=== PATIENT | male | born 1950 | race Caucasian/White ===

== ENCOUNTER → 2017-07-27 | Outpatient (CLI) | payer MEDICARE, OTHER ==
--- NOTE | 2017-07-27 12:50 | Diagnostic Imaging Report ---
PROCEDURE: Lung cancer screening CT chest without contrast. TECHNIQUE: Multiple contiguous axial images were obtained through the chest without the use of intravenous contrast. This is performed with a low-dose protocol. INDICATION: Currently asymptomatic patient with 100 pack years history of smoking Comparison: None Findings: There is a 5 mm nodule in the left upper lobe image 21 of series 7 without associated calcification. This is indeterminate. There are other calcified nodules seen in the left perihilar region compatible with a prior granulomatous process. There is minimal scarring or atelectasis seen in the lung bases. Mild upper lobe predominant emphysema changes are noted. The heart size is normal. No pericardial or pleural effusion. The thoracic aorta is normal in caliber. No mediastinal mass or significantly enlarged lymph node is seen. No pleural or pericardial effusion. There is a diffuse hepatic steatosis suggested. The osseous structures appear grossly unremarkable. IMPRESSION: Indeterminate 5 mm noncalcified left upper lobe pulmonary nodule. A followup study in 6 months is recommended to ensure stability. Lung Rads Category 3. Likely benign. Recommendations: 6 months followup low dose CT. Dictated by: Dictated on workstation # [id number]
== END ==
LOC: RAD 10:42
PROVIDERS: ATTEND Internal Medicine
DX: Z12.2 Encounter for screening for malignant neoplasm of respiratory organs (principal); R91.1 Solitary pulmonary nodule

== ENCOUNTER → 2018-02-03 | Outpatient (CLI) | payer MEDICARE, OTHER ==
--- NOTE | 2018-02-01 17:18 | HISTORY AND PHYSICAL ---
DATE OF SERVICE: COLONOSCOPY HISTORY AND PHYSICAL HISTORY OF PRESENT ILLNESS: The patient is a 67-year-old white male seen in the office on for evaluation of diabetes and hypertension. He also was diagnosed with a solitary pulmonary nodule measuring 0.5 cm in size in the left upper lobe at a previous lung cancer screening due to past tobaccoism. He is scheduled for a 6-month follow up. CT at the end of this week. He reports that all in all he has had chronic stable nonradicular lower back pain, feels that he has been doing fairly well otherwise. He has history of diabetes and hypertension. There is a family history for colon cancer, index case being his mother diagnosed in her early 50s and she recently essentially with end-stage Alzheimer disease of complications from urinary tract infection with sepsis. She was in her mid 80s. He has noted no blood in the stool and has been 9 years since his last colonoscopy. He also denies bowel habit change or abdominal pain. PAST MEDICAL HISTORY: Other medical problems include type 2 diabetes mellitus and hypertension. PHYSICAL EXAMINATION: GENERAL: Reveals a pleasant overweight white male, in no acute distress. CHEST: Clear. CARDIOVASCULAR: Revealed a regular rate and rhythm with a soft I to II/ systolic ejection murmur heard best at the second right intercostal space without evidence for pulsus, parvus or tardus. VITAL SIGNS: Blood pressure 120/60. NECK: Revealed no JVD, adenopathy or bruits. ABDOMEN: Soft, supple without mass, organomegaly or tenderness. EXTREMITIES: Reveal no cyanosis, clubbing or edema. Weight was up 3.8 pounds over the past 6 months. Blood tests were reviewed. A1c increased from 6.8 to 7.7%. PSA remains within normal range slightly lower at 1.84 compared to last year. GFR stable, slightly decreased at 42 with a creatinine of 1.7 and a BUN of 21. Fasting morning sugar was 119. ASSESSMENT AND PLAN: 1. The patient was set up for screening colonoscopy, deemed to be of higher than average risk secondary to a family history of colon cancer. The index case being his mother diagnosed in her mid 50s. He reports significant problems with his last colonoscopy waking up having abdominal pain during the procedure, so will perform this under anesthesia utilizing Diprivan. Prep instructions were discussed with the patient and questions were answered. 2. Type 2 diabetes mellitus, controlled not as good due to advancing age and weight gain. We will be checking into medication coverage for SGLT-2 inhibitor therapy, but will not plan on instituting this until after his colonoscopy. For now, he will continue metformin, basal insulin therapy and glimepiride. 3. Hypertension, reasonable control. 4. Stage 3 chronic renal disease secondary to combination of hypertension and diabetes, stable. Job ID: [id number] DocumentID: [id number] Dictated Date: 02/01/2018 16:34:10 Supervisor Sanding Date: 02/01/2018 17:17:56 Dictated By: PATRICK CRUZ MD MTDD
[~2018-02-03] MED LIST: ACET-2267 PO; ASPI-999 PO; ATOR40TA70 PO; DIAZ5TAB3 PO; DOCU100C37 PO; FAMO20TA3 PO; FENO145T2 PO; GABA-486 PO; GLIM2TAB PO; HYDR-3820 PO; INSU100V6 SQ; L-THYROXINE PO; LISI-556 PO; METF10002 PO; METH78GE TP; METO10TA3 PO; MULTIVITAMINE PO; NFNEB10T PO; NIAC10002 PO; OMG1KC PO; VENL225T PO; [UNRECOGNIZED DRUG - CODE] OP; [UNRECOGNIZED DRUG - CODE] PO; [UNRECOGNIZED DRUG - OTHER] PO; [UNRECOGNIZED DRUG - OTHER] TOP; [UNRECOGNIZED DRUG - OTHER] TOP
--- NOTE | 2018-02-03 14:40 | Diagnostic Imaging Report ---
PROCEDURE: CT chest without contrast. TECHNIQUE: Multiple contiguous axial images were obtained through the chest without the use of intravenous contrast. INDICATION: Pulmonary nodule. Patient presents for six-month followup. COMPARISON: Comparison is made with prior study from 07/27/2017. FINDINGS: Low dose noncontrast acquisition was performed. Overall image quality is limited. No axillary, hilar or mediastinal lymphadenopathy is seen. There are coronary arterial calcifications present. No pericardial or pleural fluid is seen. Parenchymal evaluation again shows a small nodule in left upper lobe, image 74 series 4, stable at 4-5 mm when compared with exam six months earlier. No new parenchymal nodule is seen. IMPRESSION: Stable 4-5 mm left upper lobe nodule when compared with examination six months earlier. Additional six-month followup CT is recommended to show continued stability. Dictated by: Dictated on workstation # [id number]
== END ==
LOC: RAD 12:49
PROVIDERS: ATTEND Internal Medicine
DX: R91.1 Solitary pulmonary nodule (principal)
CPT/HCPCS: 71250

== ENCOUNTER 2018-02-24 05:37 | Outpatient (CLI) | payer MEDICARE, OTHER ==
[~2018-02-24] VITALS: Ht 175.3 cm; Wt 90.7 kg
== END 2018-02-24 15:15 ==
LOC: PREOP 05:37
PROVIDERS: ATTEND Internal Medicine
DX: Z01.818 Encounter for other preprocedural examination (principal); Z12.11 Encounter for screening for malignant neoplasm of colon; Z80.0 Family history of malignant neoplasm of digestive organs

== ENCOUNTER 2018-03-03 07:06 | Day surgery (SDC) | payer MEDICARE, OTHER ==
[~2018-03-03] VITALS: Ht 175.3 cm; Wt 90.7 kg
[2018-03-03] MEDS ORDERED: LACTATED RINGERS 1,000 ML IV ONE (07:15)
[2018-03-03] MEDS ORDERED: LACTATED RINGERS 1,000 ML IV STA (07:34)
[2018-03-03] MEDS ORDERED: proPOfol 200 MG/20 ML (DIPRIVAN) VIAL IV ONE (07:40)
[2018-03-03] MEDS ORDERED: MIDAZOLAM 2 MG/2 ML (VERSED) VIAL ONE (07:40)
[2018-03-03] MEDS ORDERED: LIDOCAINE JELLY 2% (XYLOCAINE) 5 ML TUBE MM PRN (07:45)
[2018-03-03] MEDS ORDERED: FAMO20TA3 PO (08:00)
[2018-03-03] MEDS ORDERED: ACET-2267 PO (08:00)
[2018-03-03] MEDS ORDERED: NIAC10002 PO (08:00)
[2018-03-03] MEDS ORDERED: [UNRECOGNIZED DRUG - OTHER] PO (08:00)
[2018-03-03] MEDS ORDERED: [UNRECOGNIZED DRUG - CODE] OP (08:00)
[2018-03-03] MEDS ORDERED: LISI-556 PO (08:00)
[2018-03-03] MEDS ORDERED: DIAZ5TAB3 PO (08:00)
[2018-03-03] MEDS ORDERED: METF10002 PO (08:00)
[2018-03-03] MEDS ORDERED: ATOR40TA70 PO (08:00)
[2018-03-03] MEDS ORDERED: GABA-486 PO (08:00)
[2018-03-03] MEDS ORDERED: OMG1KC PO (08:00)
[2018-03-03] MEDS ORDERED: INSU100V6 SQ (08:00)
[2018-03-03] MEDS ORDERED: DOCU100C37 PO (08:00)
[2018-03-03] MEDS ORDERED: GLIM2TAB PO (08:00)
[2018-03-03] MEDS ORDERED: VENL225T PO (08:00)
[2018-03-03] MEDS ORDERED: L-THYROXINE PO (08:00)
[2018-03-03] MEDS ORDERED: MULTIVITAMINE PO (08:00)
[2018-03-03] MEDS ORDERED: METO10TA3 PO (08:00)
[2018-03-03] MEDS ORDERED: HYDR-3820 PO (08:00)
[2018-03-03] MEDS ORDERED: FENO145T2 PO (08:00)
[2018-03-03] MEDS ORDERED: NFNEB10T PO (08:00)
[2018-03-03] MEDS ORDERED: ASPI-999 PO (08:00)
--- NOTE | 2018-03-03 08:08 | Pre-Op Note & Conscious Sedat ---
Pre-Operative Progress Note H&P Reviewed The H&P was reviewed, patient examined and no changes noted. Date H&P Reviewed: Mar 03, 2018 Time H&P Reviewed: 07:50 Conscious Sedation Pre-Proced ASA Class: 2 Airway Mallampati Classification: ([place] appropriate class) I. II. III, IV Lungs Heart ASA score ASA 1: a normal healthy patient ASA 2: a patient with a mild systemic disease (mid diabetes, controlled hypertension, obesity ASA 3: a patient with a severe systemic disease that limits activity (angina , COPD, prior Myocardial infarction) ASA 4: a patient with an incapacitating disease that is a constant threat to life (CHF, renal failure) ASA 5: a moribund patient not expected to survive 24 hrs. (ruptured aneurysm) ASA 6: a declared brain patient whose organs are being harvested. For emergent operations, add the letter E after the classification Grade 2 Sedation Plan: Analgesia, Amnesia, Plan communicated to team members, Discussed options with patient/fam, Discussed risks with patient/fam Note The patient is an appropriate candidate to undergo the planned procedure, sedation, and anesthesia. The patient immediately re-assessed prior to indication. PATRICK CRUZ MD Mar 03, 2018 08:08
[2018-03-03] MEDS ORDERED: LIDOCAINE JELLY 2% (XYLOCAINE) 5 ML TUBE ONE (08:10)
[2018-03-03] MEDS ORDERED: METH78GE TP (08:22)
[2018-03-03] MEDS ORDERED: [UNRECOGNIZED DRUG - OTHER] TOP (08:22)
[2018-03-03] MEDS ORDERED: [UNRECOGNIZED DRUG - CODE] PO (08:22)
[2018-03-03] MEDS ORDERED: [UNRECOGNIZED DRUG - OTHER] TOP (08:22)
[2018-03-03 08:39] VITALS: BP 146/79
[2018-03-03 08:55] VITALS: BP 128/70
--- NOTE | 2018-03-03 09:17 | Anesthesia-General Post-Op ---
MAC Patient Condition Mental Status/LOC: Same as Preop Cardiovascular: Satisfactory Nausea/Vomiting: Absent Respiratory: Satisfactory Pain: Controlled Complications: Absent Post Op Complications Complications None Follow Up Care/Instructions Patient Instructions None needed. Anesthesiology Discharge Order Discharge Order Patient is doing well, no complaints, stable vital signs, no apparent adverse anesthesia problems. CHI VILLEDA DO Mar 03, 2018 09:17
[2018-03-03 09:35] VITALS: BP 130/72
[2018-03-03 09:40] VITALS: BP 130/72
--- NOTE | 2018-03-03 15:39 | OPERATIVE REPORT ---
DATE OF SERVICE: COLONOSCOPY SUMMARY INDICATION FOR THE PROCEDURE: Screening colonoscopy, family history for colon cancer. The patient was placed in left lateral decubitus position. Prior to undergoing colonoscopy, digital rectal evaluation performed. No abnormalities, no additional inspection of the anal canal or distal rectal vault. On digital inspection, the prostate was compatible with mild BPH. No nodularity or tenderness is noted. The colonoscope was then inserted in the rectum under direct visualization advanced to the cecum. The cecum was identified by identification of the ileocecal valve and cecal strap. Photographic documentation was obtained. Careful inspection was made as colonoscope was withdrawn. FINDINGS: There was no evidence for internal or external hemorrhoids and the rectum was unremarkable. One diminutive small sigmoid diverticulum was present without evidence for diverticulitis. No other sigmoid colonic abnormalities were appreciated. The descending colon and splenic flexure were unremarkable. Present in the transverse colon was a sessile adenomatous appearing 3 x 4 mm lobulated polyp. It was photographed and biopsied and submitted for histopathology. There was a several drop blood loss. The remainder of the transverse colon, hepatic flexure, ascending colon and cecum were unremarkable. ASSESSMENT: 1. One diminutive polyp was biopsied and ablated using hot forceps noted in the mid transverse colon with no other evidence for neoplasia on today's evaluation. As long as there are no surprise on histopathology report considering family history, we will advocate consideration for repeat surveillance colonoscopy in 5 years. 2. One small sigmoid diverticulum was present. 3. Digital rectal evaluation of the prostate was compatible with mild BPH. Job ID: [id number] DocumentID: [id number] Dictated Date: 03/03/2018 09:21:03 Mobile Sales Technician Date: 03/03/2018 15:38:54 Dictated By: PATRICK CRUZ MD [facility]
== END 2018-03-03 09:40 | disposition home or self-care (01) ==
LOC: ENDO 07:06
PROVIDERS: ATTEND Internal Medicine
DX: Z12.11 Encounter for screening for malignant neoplasm of colon (principal); Z80.0 Family history of malignant neoplasm of digestive organs; D12.3 Benign neoplasm of transverse colon; K57.30 Diverticulosis of large intestine without perforation or abscess without bleeding; I12.9 Hypertensive chronic kidney disease with stage 1 through stage 4 chronic kidney disease, or unspecified chronic kidney disease; E78.5 Hyperlipidemia, unspecified; Z87.891 Personal history of nicotine dependence; N18.3 Chronic kidney disease, stage 3 (moderate); E11.9 Type 2 diabetes mellitus without complications; F32.9 Major depressive disorder, single episode, unspecified; F41.9 Anxiety disorder, unspecified; M54.5 Low back pain; Z79.899 Other long term (current) drug therapy; Z79.4 Long term (current) use of insulin
CPT/HCPCS: 82962; 88305

== ENCOUNTER → 2018-08-15 | Outpatient (CLI) | payer MEDICARE, OTHER ==
[~2018-08-15] MED LIST changes: +METF-399 PO; -METF10002 PO
--- NOTE | 2018-08-15 17:56 | Diagnostic Imaging Report ---
EXAM: CT low-dose lung cancer screening exam INDICATION: Left upper lobe nodule TECHNIQUE: Routine images of the thorax were obtained using the CT low-dose lung cancer screening protocol. FINDINGS: The previous exam of 02/03/2018 noted a stable 4-5 MM left upper lobe nodule. That finding is again evident and the study does not appear to have changed significantly in size or appearance. (Image 71 of 254). No other parenchymal lung mass is identified. There are a few coarse interstitial densities in both lung bases. These are similar to the prior exam are most likely chronic in nature. There is no evidence for failure, pneumonia or for a pleural effusion. The heart size is within normal limits. Coronary artery calcifications are noted. The aorta is not abnormally dilated. There is no obvious mediastinal or hilar adenopathy. The thyroid gland, where visualized, is unremarkable. The sections through the upper abdomen fail to show any sign of an acute abnormality. The well-circumscribed 2.3 x 4.0 CM soft tissue density in the subcutaneous fat along the lower back on the left seen on the previous study is again evident and no different. I suspect that this is related to a sebaceous cyst. The bone window show no evidence for a fracture or for a destructive lesion. IMPRESSION: 1. The small nodule in the left upper lobe seen previously appears stable. A six-month followup exam would be recommended for continued evaluation. 2. There is no other parenchymal abnormality is identified. 3. There is no sign of an acute cardiopulmonary abnormality. 4. The heart is not enlarged but there are coronary artery calcifications evident. Dictated by: Dictated on workstation # [id number]
== END ==
LOC: RAD 13:50
PROVIDERS: ATTEND Internal Medicine
DX: Z12.2 Encounter for screening for malignant neoplasm of respiratory organs (principal); R91.1 Solitary pulmonary nodule; Z87.891 Personal history of nicotine dependence

== ENCOUNTER → 2019-02-16 | Outpatient (CLI) | payer MEDICARE, OTHER ==
--- NOTE | 2019-02-16 15:36 | Diagnostic Imaging Report ---
EXAM: CT CHEST SCREENING WO INDICATION: 13-eiok-ejgz smoking history. Quit smoking six years ago. COMPARISON: Low-dose CT chest without contrast 08/15/2018. FINDINGS: Stable 0.4 cm pulmonary nodule in the left upper lobe. No new pulmonary nodule or mass. Stable scattered scarring, including within the lung apices. No endobronchial lesions. No pleural effusion or pneumothorax. Moderate atherosclerotic calcifications including coronary and aortic. Normal caliber central pulmonary arteries and thoracic aorta. Normal heart size. No pericardial effusion. The visualized upper abdominal contents are unremarkable. No acute osseous findings. IMPRESSION: 1. Stable pulmonary nodule in the left lung apex. No new pulmonary nodule or mass. Recommend continued screening with low-dose chest CT in 12 months. 2. Moderate atherosclerotic calcifications including coronary. LUNG-RADS CATEGORY: 2. MODIFIER: S. Please note that the low-dose technique of this chest CT is of non-diagnostic quality. This study is only intended for lung cancer screening of high risk patients. Dictated by: Dictated on workstation # [id number]
== END ==
LOC: RAD 14:26
PROVIDERS: ATTEND Internal Medicine
DX: Z12.2 Encounter for screening for malignant neoplasm of respiratory organs (principal); I25.10 Atherosclerotic heart disease of native coronary artery without angina pectoris; I70.0 Atherosclerosis of aorta; R91.1 Solitary pulmonary nodule; Z87.891 Personal history of nicotine dependence

== ENCOUNTER → 2020-02-05 | Outpatient (CLI) | payer MEDICARE, OTHER ==
[~2020-02-05] MED LIST changes: +ACHYD1T PO; -DIAZ5TAB3 PO; +DIAZ5TAB49 PO; -GLIM2TAB PO; +GLIM2TAB4 PO; -HYDR-3820 PO
--- NOTE | 2020-02-05 13:59 | Diagnostic Imaging Report ---
PROCEDURE: CT chest without contrast. TECHNIQUE: Multiple contiguous axial images were obtained through the chest without the use of intravenous contrast. Auto Exposure Controls were utilized during the CT exam to meet ALARA standards for radiation dose reduction. INDICATION: Lung nodules. FINDINGS: The CT low-dose lung cancer screening exam performed on 02/06/2019 noted a 4 mm pulmonary nodule in the left upper lobe that finding is again evident on this study and now measures approximately 3 mm (image 38 of 175 series 2). The prior exam also showed thickening of the posterior pleura of each lung base as well as 6 mm nodular density along the posterior lateral aspect of the left lower lobe. That finding is again evident and unchanged in appearance as well (image 111 of 175 series 2). There is no new parenchymal mass identified. There is no sign of failure, pneumonia or pleural effusion to indicate an acute abnormality either. The heart size is within normal limits. Coronary artery calcifications are again noted. The aorta is not abnormally dilated. There is no obvious mediastinal or hilar adenopathy. The thyroid gland is generally unremarkable. As on the prior exam, there is slightly increased density in both retroareolar regions. This could be related to mild gynecomastia. The roughly 4 cm well-circumscribed subcutaneous nodule along the posterior aspect of the mid thorax on the left seen previously is again evident and unchanged. This is probably a sebaceous cyst. The sections through the upper abdomen failed to show any sign of an acute abnormality. The bone windows show no sign of a fracture or for destructive lesion. IMPRESSION: 1. The small nodule in left upper lung seen previously appears stable. The pleural thickening along the posterior aspect of each lung base noted on the prior exam is also unchanged when compared to the prior study. I would recommend that a follow-up low-dose lung cancer screening exam in one year be performed for continued evaluation. 2. There is no evidence for an acute cardiopulmonary abnormality. 3. The heart is not enlarged, but there are coronary artery calcifications evident. Dictated by: Dictated on workstation # [id number]
== END ==
LOC: RAD 12:17
PROVIDERS: ATTEND Internal Medicine
DX: R91.1 Solitary pulmonary nodule (principal); I25.10 Atherosclerotic heart disease of native coronary artery without angina pectoris
CPT/HCPCS: 71250

== ENCOUNTER → 2021-02-16 | Outpatient (CLI) | payer MEDICARE, OTHER ==
[~2021-02-16] MED LIST changes: -LISI-556 PO; +LISI-729 PO; -METO10TA3 PO; +MTC10T PO
--- NOTE | 2021-02-16 17:31 | Diagnostic Imaging Report ---
TIME OF EXAM: 02/16/2021 4:19 p.m. REASON FOR EXAM: Lung cancer screening. 100 pack year smoking history. COMPARISON: 02/05/2020 TECHNIQUE: Low Dose CT helical images obtained through the chest. Sagittal and coronal reformats were obtained and reviewed. Dose reduction techniques were utilized. CTDI vol: 2.[address] scans use one or more of the following dose optimizing techniques: automated exposure control, MA and/or KvP adjustment based on patient size and exam type or iterative reconstruction. FINDINGS: Nodules: -- A) 4 mm, indeterminate noncalcified solid left upper lobe nodule (image 69, series 2) Lungs: Lung volumes are normal. No significant emphysema or fibrosis is present. There is no appreciable bronchiectasis. No new pulmonary nodules are identified. No pulmonary mass or consolidation is present. No central endoluminal airway lesion is seen. Heart and Mediastinum: Heart size is within normal limits. Small amount of coronary calcifications are present. Aortic atherosclerosis is present without aneurysm. No pericardial effusion is present. No axillary, supraclavicular, mediastinal, internal mammary, or hilar adenopathy is present by CT size criteria. Normal size and attenuation of the visualized thyroid gland. Pleura: Normal pleural spaces. No effusion or pneumothorax. No pleural nodularity or mass. Abdomen: Included views of the upper abdomen demonstrate no acute abnormality. Bones and soft tissues: Regional skeletal and soft tissue structures are age-appropriate. Likely a sebaceous cyst is seen posterior to the left chest. IMPRESSION: 1. Stable nodule in the left upper lobe measuring 4 mm. No new suspicious pulmonary nodules. Recommend continued surveillance with low-dose chest CT in 12 months. 2. No thoracic lymphadenopathy. Result code: Category 2: Benign Appearance or Behavior Follow up: Continue annual screening with LDCT in 12 months Dictated by: Dictated on workstation # [id number]
== END ==
LOC: RAD 15:35
PROVIDERS: ATTEND Internal Medicine
DX: Z12.2 Encounter for screening for malignant neoplasm of respiratory organs (principal); R91.1 Solitary pulmonary nodule; Z87.891 Personal history of nicotine dependence
CPT/HCPCS: 71271

== ENCOUNTER → 2021-03-03 | Outpatient (CLI) | payer MEDICARE, OTHER ==
--- NOTE | 2021-03-03 18:23 | Diagnostic Imaging Report ---
PROCEDURE: CT left upper extremity without contrast. TECHNIQUE: Multiple contiguous axial images were obtained through the left upper extremity without the use of intravenous contrast. Auto Exposure Controls were utilized during the CT exam to meet ALARA standards for radiation dose reduction. INDICATION: Sprain of the left rotator cuff. FINDINGS: Acromioclavicular alignment is normal. The humeral head is high riding with complete narrowing of the acromiohumeral space, consistent with chronic rotator cuff arthropathy. There is likely full-thickness rotator cuff tear. Bony structures appear intact. There are no fractures identified. IMPRESSION: High-riding humeral head with findings of chronic rotator cuff arthropathy. No acute bony abnormality is detected. Dictated by: Dictated on workstation # [id number]
== END ==
LOC: RAD 16:45
PROVIDERS: ATTEND Orthopaedic Surgery
DX: S43.422A Sprain of left rotator cuff capsule, initial encounter (principal); M12.812 Other specific arthropathies, not elsewhere classified, left shoulder
CPT/HCPCS: 73200

== ENCOUNTER → 2022-02-17 | Outpatient (CLI) | payer MEDICARE, OTHER ==
[~2022-02-17] MED LIST changes: -LISI-729 PO; +LISI5TAB20 PO
--- NOTE | 2022-02-17 13:41 | Diagnostic Imaging Report ---
EXAMINATION: CT chest without contrast (lung screening). TECHNIQUE: Multiple contiguous axial images were obtained through the chest without the use of intravenous contrast according to lung cancer screening protocol. All CT scans use one or more of the following dose optimizing techniques: automated exposure control, MA and/or KvP adjustment based on patient size and exam type or iterative reconstruction. HISTORY: 100 pack year history of smoking. COMPARISON: 02/16/2021 FINDINGS: Thyroid: The thyroid is normal. Mediastinum: Heart size is normal without significant pericardial effusion. Calcifications of the aorta and coronary vessels. Thoracic aorta is normal in caliber. No suspicious lymphadenopathy. Lungs and airways: There are mild background emphysematous changes of lungs without consolidation, pleural effusion, or pneumothorax. A stable 0.4 cm left upper lobe pulmonary nodule. No new suspicious pulmonary nodule. Linear atelectasis or scarring within the lung bases. There is mild bronchial wall thickening. Upper abdomen: The subphrenic structures are normal. Musculoskeletal: Degenerative changes of the spine without suspicious osseous lesion or compression fracture. IMPRESSION: 1. No new suspicious pulmonary nodules. Recommend continued annual low-dose CT screening. LUNG-RADS CATEGORY: 2 MODIFIER: S Dictated by: Dictated on workstation # [id number]
== END ==
LOC: RAD 12:58
PROVIDERS: ATTEND Internal Medicine
DX: Z12.2 Encounter for screening for malignant neoplasm of respiratory organs (principal); Z87.891 Personal history of nicotine dependence
CPT/HCPCS: 71271

== ENCOUNTER → 2023-03-02 | Outpatient (CLI) | payer MEDICARE, OTHER ==
--- NOTE | 2023-03-02 15:26 | Diagnostic Imaging Report ---
TIME OF EXAM: 03/02/2023 1:14 PM REASON FOR EXAM: Lung cancer screening. 100 pack-year smoking history. COMPARISON: 02/17/2022. TECHNIQUE: Low Dose CT helical images obtained through the chest. Sagittal and coronal reformats were obtained and reviewed. Dose reduction techniques were utilized. CTDI vol: 2.22 mGy FINDINGS: Lungs: Lung volumes are normal. Stable solid nodule in the left upper lobe measuring 0.4 cm. No new suspicious pulmonary nodules. No significant emphysema or fibrosis is present. There is no appreciable bronchiectasis. No pulmonary mass or consolidation is present. Dependent atelectasis is seen in the lungs. No central endoluminal airway lesion is seen. Heart and Mediastinum: Heart size is within normal limits. Small amount of coronary calcifications are present. Aortic atherosclerosis is present without aneurysm. No pericardial effusion is present. No axillary, supraclavicular, mediastinal, internal mammary, or hilar adenopathy is present by CT size criteria. Normal size and attenuation of the visualized thyroid gland. Pleura: Normal pleural spaces. No effusion or pneumothorax. No pleural nodularity or mass. Abdomen: Included views of the upper abdomen demonstrate no acute abnormality. Bones and soft tissues: No acute osseous abnormalities. Likely sebaceous cyst is noted in the posterior soft tissues left of midline. IMPRESSION: 1. No new suspicious pulmonary nodules. Recommend continued surveillance in 12 months with low-dose chest CT. 2. No thoracic lymphadenopathy. Result code: Category 2: Benign Appearance or Behavior Follow up: Continue annual screening with LDCT in 12 months Dictated by: Dictated on workstation # [id number]
== END ==
LOC: RAD 12:53
PROVIDERS: ATTEND Internal Medicine
DX: Z12.2 Encounter for screening for malignant neoplasm of respiratory organs (principal); F17.210 Nicotine dependence, cigarettes, uncomplicated
CPT/HCPCS: 71271